=== PATIENT | male | born 1950 | race Caucasian/White ===

== ENCOUNTER 2019-01-20 04:36 | Inpatient (IN) | payer OTHER, MEDICARE ==
[~2019-01-20] VITALS: Ht 170.2 cm; Wt 81.1 kg
[2019-01-20] MEDS ORDERED: SODIUM CHLORIDE 0.9% 1,000ML IVBOLUS ONE (05:00)
[2019-01-20 05:33] LABS: BASOPHILS % (AUTO) 0 % (0-1); EOSINOPHILS # (AUTO) 0.02 x10^3/uL (0-0.4); EOSINOPHILS % (AUTO) 0 % (1-7); LYMPHOCYTES # (AUTO) 0.61 x10^3/uL (1-3.4); LYMPHOCYTES % (AUTO) 6 % (22-44); MD NO; MEAN CORPUSCULAR HEMOGLOBIN 32.3 pg (27.5-34.5); MEAN CORPUSCULAR HGB CONC 34.1 g/dL (33.2-36.2); MEAN CORPUSCULAR VOLUME 94.7 fL (81-97); MEAN PLATELET VOLUME 9.9 fL (7.4-10.4); MONOCYTES # (AUTO) 0.58 x10^3/uL (0.2-0.8); MONOCYTES % (AUTO) 6 % (2-9); NEUTROPHILS # (AUTO) 9.47 x10^3/uL (1.8-6.8); NEUTROPHILS % (AUTO) 89 % (42-75); PLATELET COUNT 160 x10^3/uL (130-400); RED BLOOD COUNT 4.37 x10^6/uL (4.38-5.82)
[2019-01-20 05:41] LABS: ALBUMIN 3.6 g/dL (3.4-5.0); ANION GAP 4 mmol/L (5-15); CALCIUM 8.6 mg/dL (8.5-10.1); CHLORIDE 108 mmol/L (98-107)
[2019-01-20] MEDS ORDERED: LAMO300T2 PO (05:56)
--- NOTE | 2019-01-20 05:56 | NUR ---
PT RESTING ON GURJUNIOR, AT BEDSIDE. PT STATES "IT HURTS TO TAKE A DEEP BREATH". PT RESP RATE 24-28. VSS. WILL CONT TO MONITOR.
[2019-01-20] MEDS ORDERED: ALBUTEROL SULFATE 2.5 MG/3 ML NPPB ONE (06:00)
[2019-01-20] MEDS ORDERED: ALBUTEROL SULFATE 2.5 MG/3 ML ONE (06:02)
--- NOTE | 2019-01-20 06:56 | NUR ---
Recieved bedside report from MARCELO Gagnon. All questions answered. Assuming care of pt. NADN. No needs expressed from pt. call light within reach. All safety measures in place.
[2019-01-20] MEDS ORDERED: CEFTRIAXONE PMX 1GM/50ML 50 ML ONE (06:59)
[2019-01-20] MEDS ORDERED: PIPERACILLIN/TAZO/PMX 3.375GM 50 ML IVPB ONE (07:00)
[2019-01-20] MEDS ORDERED: CEFTRIAXONE PMX 1GM/50ML 50 ML IVPB ONE (07:00)
[2019-01-20] MEDS ORDERED: ONDANSETRON 2MG/ML, 2ML ONE (07:15)
--- NOTE | 2019-01-20 07:22 | NUR ---
Provided pt medication per EMAR. LEONG. Pt appreciative. Pt requesting yogurt for breakfast. Ordered pt breakfast tray with yogurt. Call light within reach. No other needs requested at this time. Pt connected to NIBP, continous pulse ox, and load tallier. All safety measures in place. Spouse at bedside.
[2019-01-20] MEDS ORDERED: ONDANSETRON 2MG/ML, 2ML IVPush ONE (07:30)
[2019-01-20] MEDS ORDERED: SODIUM CHLORIDE FLUSH 10ML SYR IVF PRN (07:30)
--- NOTE | 2019-01-20 08:14 | NUR ---
Provided report to MARCELO Archer. All questions answered. Pt ready to transfer to floor from ED.
--- NOTE | 2019-01-20 08:23 | NUR ---
Pt transfered to floor from ED and left with all personal belongings.
[2019-01-20 10:43] VITALS: BP 104/65
[2019-01-20] MEDS ORDERED: GUAIFENESIN/COD200MG-20MG/10ML LIQUID PO PRN (11:30)
[2019-01-20] MEDS ORDERED: ACETAMINOPHEN 325 MG TABLET PO PRN (11:30)
[2019-01-20] MEDS ORDERED: morphine SULFATE 10 MG/ML, 1ML IVPush PRN (11:30)
[2019-01-20] MEDS ORDERED: ONDANSETRON 2MG/ML, 2ML IVPush PRN (11:30)
[2019-01-20] MEDS ORDERED: NITROGLYCERIN 0.4 MG BOTTLE (25 TABS) SL PRN (11:30)
[2019-01-20] MEDS ORDERED: hydrALAzine 20 MG/ML, 1ML IVPush PRN (11:30)
[2019-01-20] MEDS ORDERED: CYCLOBENZAPRINE 10 MG TABLET PO PRN (11:30)
[2019-01-20] MEDS ORDERED: OXYcodone IR 5MG TABLET PO PRN (11:30)
[2019-01-20 12:42] VITALS: BP 105/66
[2019-01-20] MEDS: CLINDAMYCIN PMX 600MG/50ML 50 ML IV SCH ×2 (12:47→20:45)
[2019-01-20] MEDS: ENOXAPARIN 40 MG/0.4 ML SQ SCH (12:47)
--- NOTE | 2019-01-20 13:47 | NUR ---
REC: Chopped diet with thin liquids; strict aspiration precautions; Swallowing precautions (orange sheet) posted in room. Addendum: 01/20/19 at 1348 by Roberta PATEL Amended: Links added.
[2019-01-20] MEDS: LACTOBACILLUS 1GM/ PACKET PO SCH ×2 (17:19→23:46)
[2019-01-20 19:02] VITALS: BP 104/66
[2019-01-20] MEDS: SODIUM CHLORIDE 0.9% 1,000 ML IV SCH (23:46)
[2019-01-20] MEDS: LAMOTRIGINE 100 MG TABLET PO SCH (23:48)
[2019-01-21 01:15] VITALS: BP 104/70
[2019-01-21] MEDS: CLINDAMYCIN PMX 600MG/50ML 50 ML IV SCH (04:44)
[2019-01-21 04:49] LABS: BASOPHILS # (AUTO) 0.05 x10^3/uL (0-0.1); BASOPHILS % (AUTO) 1 % (0-1); EOSINOPHILS # (AUTO) 0.06 x10^3/uL (0-0.4); EOSINOPHILS % (AUTO) 1 % (1-7); LYMPHOCYTES # (AUTO) 1.02 x10^3/uL (1-3.4); LYMPHOCYTES % (AUTO) 11 % (22-44); MD NO; MEAN CORPUSCULAR HEMOGLOBIN 32.4 pg (27.5-34.5); MEAN CORPUSCULAR HGB CONC 34.1 g/dL (33.2-36.2); MEAN PLATELET VOLUME 9.5 fL (7.4-10.4); MONOCYTES # (AUTO) 0.98 x10^3/uL (0.2-0.8); MONOCYTES % (AUTO) 11 % (2-9); NEUTROPHILS # (AUTO) 6.98 x10^3/uL (1.8-6.8); NEUTROPHILS % (AUTO) 77 % (42-75); PLATELET COUNT 144 x10^3/uL (130-400); RED BLOOD COUNT 3.93 x10^6/uL (4.38-5.82); RED CELL DISTRIBUTION WIDTH 13.5 % (9.4-14.8)
[2019-01-21 04:55] LABS: ANION GAP 6 mmol/L (5-15); CALCIUM 7.9 mg/dL (8.5-10.1); CHLORIDE 109 mmol/L (98-107); CREATININE 0.75 mg/dL (0.7-1.3)
[2019-01-21] MEDS ORDERED: CEFTRIAXONE PMX 1GM/50ML 50 ML IV SCH (07:00)
[2019-01-21 07:31] VITALS: BP 98/66
[2019-01-21] MEDS: LAMOTRIGINE 100 MG TABLET PO SCH ×2 (08:22→21:19)
[2019-01-21] MEDS: LACTOBACILLUS 1GM/ PACKET PO SCH ×3 (08:22→21:19)
[2019-01-21] MEDS ORDERED: LAMOTRIGINE PO SCH (09:00)
[2019-01-21] MEDS: AMPICILLIN/SULBACTAM 3 GM in SODIUM CHLORIDE 0.9% 100 ML IV SCH ×3 (10:34→21:20)
[2019-01-21] MEDS ORDERED: ALBUTEROL/IPRATROPIUM 2.5MG/0.5MG, 3 ML NPPB PRN (12:00)
[2019-01-21 12:43] VITALS: BP 96/60
[2019-01-21] MEDS: TAMSULOSIN 0.4 MG CAP.ER.24H PO SCH (12:47)
[2019-01-21] MEDS: GUAIFENESIN 200 MG TABLET PO SCH ×3 (12:47→21:19)
[2019-01-21] MEDS: SODIUM CHLORIDE 0.9% 1,000 ML IV SCH (12:48)
[2019-01-21] MEDS: ENOXAPARIN 40 MG/0.4 ML SQ SCH (12:48)
[2019-01-21] MEDS ORDERED: SODIUM CHLORIDE INHALATION 7%, 4 ML NPPB ONE (16:00)
[2019-01-21 20:45] VITALS: BP 107/63
[2019-01-21] MEDS: DOCUSATE 100 MG CAPSULE PO PRN (21:19)
[2019-01-22 00:40] VITALS: BP 104/64
[2019-01-22] MEDS: AMPICILLIN/SULBACTAM 3 GM in SODIUM CHLORIDE 0.9% 100 ML IV SCH ×4 (04:01→22:10)
[2019-01-22 04:45] LABS: BASOPHILS # (AUTO) 0.04 x10^3/uL (0-0.1); BASOPHILS % (AUTO) 0 % (0-1); EOSINOPHILS # (AUTO) 0.22 x10^3/uL (0-0.4); EOSINOPHILS % (AUTO) 2 % (1-7); LYMPHOCYTES # (AUTO) 1.86 x10^3/uL (1-3.4); LYMPHOCYTES % (AUTO) 18 % (22-44); MD NO; MEAN CORPUSCULAR HEMOGLOBIN 32.2 pg (27.5-34.5); MEAN CORPUSCULAR HGB CONC 33.7 g/dL (33.2-36.2); MEAN CORPUSCULAR VOLUME 95.5 fL (81-97); MEAN PLATELET VOLUME 9.5 fL (7.4-10.4); MONOCYTES # (AUTO) 0.84 x10^3/uL (0.2-0.8); MONOCYTES % (AUTO) 8 % (2-9); NEUTROPHILS # (AUTO) 7.14 x10^3/uL (1.8-6.8); NEUTROPHILS % (AUTO) 71 % (42-75); PLATELET COUNT 166 x10^3/uL (130-400); RED BLOOD COUNT 4.26 x10^6/uL (4.38-5.82); RED CELL DISTRIBUTION WIDTH 13.3 % (9.4-14.8)
[2019-01-22 04:55] LABS: ALANINE AMINOTRANSFERASE 32 U/L (12-78); ALBUMIN 2.7 g/dL (3.4-5.0); ANION GAP 8 mmol/L (5-15); CALCIUM 8.2 mg/dL (8.5-10.1); CHLORIDE 111 mmol/L (98-107); CREATININE 0.76 mg/dL (0.7-1.3)
[2019-01-22 04:57] LABS: ALKALINE PHOSPHATASE 86 U/L (45-117); BILIRUBIN,TOTAL 0.9 mg/dL (0.2-1.0); TOTAL PROTEIN 6.2 g/dL (6.4-8.2)
[2019-01-22] MEDS: GUAIFENESIN 200 MG TABLET PO SCH ×4 (06:01→21:25)
[2019-01-22 07:19] VITALS: BP 105/63
[2019-01-22] MEDS: LAMOTRIGINE 100 MG TABLET PO SCH ×2 (09:04→21:25)
[2019-01-22] MEDS: LACTOBACILLUS 1GM/ PACKET PO SCH ×3 (09:04→21:25)
[2019-01-22] MEDS: TAMSULOSIN 0.4 MG CAP.ER.24H PO SCH (09:04)
[2019-01-22] MEDS: ENOXAPARIN 40 MG/0.4 ML SQ SCH (10:52)
[2019-01-22 12:42] VITALS: BP 108/58
[2019-01-22] MEDS: DOCUSATE 100 MG CAPSULE PO PRN (16:46)
[2019-01-22 19:33] VITALS: BP 120/71
[2019-01-23 02:15] VITALS: BP 115/66
[2019-01-23] MEDS: AMPICILLIN/SULBACTAM 3 GM in SODIUM CHLORIDE 0.9% 100 ML IV SCH ×2 (05:14→10:18)
[2019-01-23 05:44] LABS: BASOPHILS # (AUTO) 0.02 x10^3/uL (0-0.1); BASOPHILS % (AUTO) 0 % (0-1); EOSINOPHILS # (AUTO) 0.35 x10^3/uL (0-0.4); EOSINOPHILS % (AUTO) 4 % (1-7); LYMPHOCYTES % (AUTO) 16 % (22-44); MD NO; MEAN CORPUSCULAR HEMOGLOBIN 32.2 pg (27.5-34.5); MEAN CORPUSCULAR HGB CONC 33.7 g/dL (33.2-36.2); MEAN CORPUSCULAR VOLUME 95.6 fL (81-97); MEAN PLATELET VOLUME 9.4 fL (7.4-10.4); MONOCYTES # (AUTO) 0.71 x10^3/uL (0.2-0.8); MONOCYTES % (AUTO) 9 % (2-9); NEUTROPHILS # (AUTO) 5.91 x10^3/uL (1.8-6.8); NEUTROPHILS % (AUTO) 71 % (42-75); PLATELET COUNT 190 x10^3/uL (130-400); RED BLOOD COUNT 3.92 x10^6/uL (4.38-5.82); RED CELL DISTRIBUTION WIDTH 12.9 % (9.4-14.8)
[2019-01-23 05:55] LABS: CHLORIDE 112 mmol/L (98-107)
[2019-01-23 06:11] LABS: ALANINE AMINOTRANSFERASE 31 U/L (12-78); ALBUMIN 2.7 g/dL (3.4-5.0); ALKALINE PHOSPHATASE 97 U/L (45-117); ANION GAP 6 mmol/L (5-15); BILIRUBIN,TOTAL 0.7 mg/dL (0.2-1.0); CREATININE 0.77 mg/dL (0.7-1.3); TOTAL PROTEIN 6.1 g/dL (6.4-8.2)
[2019-01-23] MEDS: GUAIFENESIN 200 MG TABLET PO SCH ×3 (06:43→16:37)
[2019-01-23 07:15] VITALS: BP 121/72
[2019-01-23] MEDS: TAMSULOSIN 0.4 MG CAP.ER.24H PO SCH (08:42)
[2019-01-23] MEDS: LAMOTRIGINE 100 MG TABLET PO SCH (08:42)
[2019-01-23] MEDS: LACTOBACILLUS 1GM/ PACKET PO SCH ×2 (08:43→16:37)
[2019-01-23] MEDS ORDERED: AMOX1TAB64 PO (10:13)
[2019-01-23] MEDS ORDERED: GUAI200T3 PO (10:13)
[2019-01-23] MEDS ORDERED: DOXY100T PO (10:13)
[2019-01-23] MEDS ORDERED: TAMS-11 PO (10:13)
[2019-01-23] MEDS: ENOXAPARIN 40 MG/0.4 ML SQ SCH (11:16)
[2019-01-23] MEDS: GUAIFENESIN 100 MG/5 ML, 5ML UDC PO PRN ×2 (11:16→11:20)
[2019-01-23 14:35] VITALS: BP 108/77
== END 2019-01-23 17:15 | disposition home or self-care (01) | DRG 871 ==
LOC: ED 05:35 → EDIP 07:03 → 3NW 09:54
PROVIDERS: ADMIT Hospitalist; ATTEND Hospitalist
DX: A41.9 Sepsis, unspecified organism (principal); J96.01 Acute respiratory failure with hypoxia; J69.0 Pneumonitis due to inhalation of food and vomit; D64.9 Anemia, unspecified; E86.0 Dehydration; G40.909 Epilepsy, unspecified, not intractable, without status epilepticus; G80.9 Cerebral palsy, unspecified; Z82.49 Family history of ischemic heart disease and other diseases of the circulatory system
CPT/HCPCS: 36415; 84145; 96361; 99285; J7613; 71046; 71250; 80048; 80053; 82040; 83605; 83735; 84100; 85025; 87040; 93005; 93306; 94640; 96365; G0378; J0295; J0696; J1650; J2405; J7030

== ENCOUNTER 2019-01-31 12:55 | Inpatient (IN) | payer OTHER, MEDICARE ==
[~2019-01-31] VITALS: Ht 170.2 cm; Wt 75.0 kg
[~2019-01-31 12:55] MED LIST: AMOX1TAB64 PO; DOXY100T PO; GUAI200T3 PO; LAMO300T2 PO; TAMS-11 PO
[2019-01-31 13:37] LABS: BASOPHILS # (AUTO) 0.02 x10^3/uL (0-0.1); BASOPHILS % (AUTO) 0 % (0-1); EOSINOPHILS # (AUTO) 0.04 x10^3/uL (0-0.4); EOSINOPHILS % (AUTO) 0 % (1-7); LYMPHOCYTES # (AUTO) 1.01 x10^3/uL (1-3.4); LYMPHOCYTES % (AUTO) 6 % (22-44); MD NO; MEAN CORPUSCULAR HEMOGLOBIN 31.5 pg (27.5-34.5); MEAN CORPUSCULAR HGB CONC 33.4 g/dL (33.2-36.2); MEAN CORPUSCULAR VOLUME 94.4 fL (81-97); MEAN PLATELET VOLUME 8.4 fL (7.4-10.4); MONOCYTES # (AUTO) 0.92 x10^3/uL (0.2-0.8); MONOCYTES % (AUTO) 6 % (2-9); NEUTROPHILS # (AUTO) 14.18 x10^3/uL (1.8-6.8); NEUTROPHILS % (AUTO) 88 % (42-75); PLATELET COUNT 366 x10^3/uL (130-400); RED BLOOD COUNT 5.22 x10^6/uL (4.38-5.82); RED CELL DISTRIBUTION WIDTH 13.3 % (9.4-14.8)
[2019-01-31 13:46] LABS: ALANINE AMINOTRANSFERASE 139 U/L (12-78); ALBUMIN 3.7 g/dL (3.4-5.0); ANION GAP 8 mmol/L (5-15); CALCIUM 9.3 mg/dL (8.5-10.1); CHLORIDE 107 mmol/L (98-107); CREATININE 1.32 mg/dL (0.7-1.3)
[2019-01-31 13:48] LABS: ALKALINE PHOSPHATASE 152 U/L (45-117); BILIRUBIN,TOTAL 0.9 mg/dL (0.2-1.0); TOTAL PROTEIN 8.3 g/dL (6.4-8.2)
[2019-01-31] MEDS ORDERED: ONDANSETRON 2MG/ML, 2ML IVPush ONE (14:00)
[2019-01-31] MEDS ORDERED: SODIUM CHLORIDE 0.9% 1,000ML IVBOLUS ONE ×2 (14:00→15:30)
[2019-01-31] MEDS ORDERED: ONDANSETRON 2MG/ML, 2ML ONE (14:00)
[2019-01-31] MEDS ORDERED: LAMO100T5 PO (14:08)
[2019-01-31] MEDS ORDERED: LAMO200T3 PO ×2 (14:08)
--- NOTE | 2019-01-31 14:13 | NUR ---
REPORT TO PRIMARY RN LIYAH. PT AND FAMILY UPDATED ON PLAN OF CARE. DENY NEEDS AT THIS TIME.
--- NOTE | 2019-01-31 14:19 | NUR ---
Assumed care of patient. DC'd last week after admit for PN. Here today with C/O nausea, periumbilical pain tender on palpation, and SOB. NAD. Placed on NIBP, pulse ox, and tower observer. Sinus tach. IV started, labs drawn and NS bolus hung. at bedside. Will continue to monitor.
[2019-01-31 14:26] LABS: INTERNATIONAL NORMALIZED RATIO 1.04 (0.93-1.1); PROTHROMBIN TIME 10.9 Seconds (9.6-11.5)
[2019-01-31] MEDS ORDERED: OMNIPAQUE 350 MG/ML, 100ML BOTTLE ONE (15:04)
--- NOTE | 2019-01-31 15:07 | NUR ---
Back from CT. Encouraged patient to provide UA.
--- NOTE | 2019-01-31 15:43 | NUR ---
Remains tachycardic after first liter. Second liter hung per MD order.
[2019-01-31] MEDS ORDERED: ONDANSETRON 2MG/ML, 2ML IVPush PRN (16:30)
[2019-01-31] MEDS ORDERED: POLYETHYLENE GLYCOL 17 GM PACKET PO PRN (16:30)
[2019-01-31] MEDS ORDERED: LABETALOL 5MG/ML, 20ML IVPush PRN (16:30)
[2019-01-31] MEDS ORDERED: DILTIAZEM 5 MG/ML, 5ML IVPush ONE (16:30)
[2019-01-31] MEDS ORDERED: ONDANSETRON ODT 4 MG PO PRN (16:30)
[2019-01-31] MEDS ORDERED: DILTIAZEM 5 MG/ML, 10ML ONE (16:37)
[2019-01-31 16:46] LABS: MICROSCOPIC AUTO
--- NOTE | 2019-01-31 16:48 | NUR ---
Report to MARCELO Santoro.
[2019-01-31 16:50] LABS: FREE T4 (FREE THYROXINE) 1.37 ng/dL (0.76-1.46)
[2019-01-31 16:57] LABS: CULTURE INDICATED? NO
[2019-01-31 17:44] VITALS: BP 135/90
[2019-01-31] MEDS: DILTIAZEM 125 MG in SODIUM CHLORIDE 0.9% 100 ML IV SCH (18:22)
[2019-01-31] MEDS ORDERED: HEPARIN 5,000 UNITS/ML, 1ML IV ONE ×2 (18:30→21:00)
[2019-01-31] MEDS ORDERED: HEPARIN 5,000 UNITS/ML, 1ML IV PRN ×2 (18:30→21:00)
[2019-01-31] MEDS ORDERED: HEPARIN 25,000 UNITS/500ML PMX 500 ML IV PRN ×2 (18:30→21:00)
[2019-01-31 19:27] VITALS: BP 114/79
[2019-01-31] MEDS ORDERED: LAMOTRIGINE 200 MG TABLET PO SCH (21:00)
[2019-02-01 01:25] VITALS: BP 116/78
[2019-02-01 03:17] LABS: MEAN CORPUSCULAR HEMOGLOBIN 32.4 pg (27.5-34.5); MEAN CORPUSCULAR HGB CONC 33.9 g/dL (33.2-36.2); MEAN CORPUSCULAR VOLUME 95.5 fL (81-97); MEAN PLATELET VOLUME 8.4 fL (7.4-10.4); PLATELET COUNT 329 x10^3/uL (130-400); RED CELL DISTRIBUTION WIDTH 13.5 % (9.4-14.8)
[2019-02-01 03:28] LABS: ALANINE AMINOTRANSFERASE 119 U/L (12-78); ALBUMIN 3.1 g/dL (3.4-5.0); ANION GAP 5 mmol/L (5-15); CALCIUM 8.3 mg/dL (8.5-10.1); CHLORIDE 108 mmol/L (98-107)
[2019-02-01 03:39] LABS: ALKALINE PHOSPHATASE 121 U/L (45-117); BILIRUBIN,TOTAL 0.9 mg/dL (0.2-1.0); CREATININE 1.32 mg/dL (0.7-1.3); THYROID STIMULATING HORMONE 0.729 mIU/L (0.358-3.740)
[2019-02-01 05:48] LABS: BASOPHILS # (AUTO) 0.05 x10^3/uL (0-0.1); BASOPHILS % (AUTO) 0 % (0-1); EOSINOPHILS # (AUTO) 0.04 x10^3/uL (0-0.4); EOSINOPHILS % (AUTO) 0 % (1-7); LYMPHOCYTES # (AUTO) 1.12 x10^3/uL (1-3.4); LYMPHOCYTES % (AUTO) 6 % (22-44); MD SCAN; MONOCYTES # (AUTO) 1.02 x10^3/uL (0.2-0.8); MONOCYTES % (AUTO) 5 % (2-9); NEUTROPHILS # (AUTO) 17.09 x10^3/uL (1.8-6.8); NEUTROPHILS % (AUTO) 89 % (42-75)
[2019-02-01] MEDS: DILTIAZEM 125 MG in SODIUM CHLORIDE 0.9% 100 ML IV SCH ×2 (06:35→18:04)
[2019-02-01 07:40] VITALS: BP 102/67
[2019-02-01] MEDS ORDERED: SODIUM CHLORIDE 0.9% 1,000 ML IV SCH (08:00)
[2019-02-01] MEDS: SENNA/DOCUSATE TABLET PO SCH (08:17)
[2019-02-01] MEDS: LAMOTRIGINE 200 MG TABLET PO SCH (08:17)
[2019-02-01] MEDS ORDERED: LAMOTRIGINE 200 MG TABLET PO SCH (09:00)
[2019-02-01] MEDS ORDERED: LAMOTRIGINE 100 MG TABLET PO SCH (09:00)
[2019-02-01] MEDS ORDERED: OMNIPAQUE 350 MG/ML, 100ML BOTTLE ONE (09:06)
[2019-02-01] MEDS ORDERED: HEPARIN 5,000 UNITS/ML, 1ML IV ONE (14:00)
[2019-02-01 14:30] VITALS: BP 109/77
[2019-02-01] MEDS: HEPARIN 25,000 UNITS/500ML PMX 500 ML IV PRN (14:58)
[2019-02-01] MEDS ORDERED: DIGOXIN 0.25 MG/ML, 2ML IVPush ONE (15:00)
[2019-02-01] MEDS: DIGOXIN 0.25 MG/ML, 2ML IVPush SCH ×2 (16:51→21:42)
[2019-02-01 20:10] VITALS: BP 102/65
[2019-02-01] MEDS: HEPARIN 5,000 UNITS/ML, 1ML IV PRN (22:11)
[2019-02-02 01:19] VITALS: BP 123/65
[2019-02-02] MEDS: HEPARIN 5,000 UNITS/ML, 1ML IV PRN ×3 (06:28→19:58)
[2019-02-02] MEDS: DILTIAZEM 125 MG in SODIUM CHLORIDE 0.9% 100 ML IV SCH (07:04)
[2019-02-02 07:25] VITALS: BP 108/65
[2019-02-02 09:24] LABS: MEAN CORPUSCULAR HEMOGLOBIN 31.7 pg (27.5-34.5); MEAN CORPUSCULAR VOLUME 95.9 fL (81-97); MEAN PLATELET VOLUME 9.5 fL (7.4-10.4); PLATELET COUNT 325 x10^3/uL (130-400); RED CELL DISTRIBUTION WIDTH 13.5 % (9.4-14.8)
[2019-02-02] MEDS: LAMOTRIGINE 200 MG TABLET PO SCH (09:35)
[2019-02-02] MEDS: DIGOXIN 0.25 MG TABLET PO SCH (09:35)
[2019-02-02] MEDS: SENNA/DOCUSATE TABLET PO SCH (09:36)
[2019-02-02 09:40] LABS: BASOPHILS # (AUTO) 0.01 x10^3/uL (0-0.1); BASOPHILS % (AUTO) 0 % (0-1); EOSINOPHILS # (AUTO) 0.02 x10^3/uL (0-0.4); EOSINOPHILS % (AUTO) 0 % (1-7); LYMPHOCYTES # (AUTO) 1.56 x10^3/uL (1-3.4); LYMPHOCYTES % (AUTO) 10 % (22-44); MD SCAN; MONOCYTES # (AUTO) 1.26 x10^3/uL (0.2-0.8); MONOCYTES % (AUTO) 8 % (2-9); NEUTROPHILS # (AUTO) 12.46 x10^3/uL (1.8-6.8); NEUTROPHILS % (AUTO) 81 % (42-75)
[2019-02-02 09:53] LABS: ALBUMIN 2.5 g/dL (3.4-5.0); CALCIUM 8.3 mg/dL (8.5-10.1); CREATININE 1.36 mg/dL (0.7-1.3)
[2019-02-02 10:04] LABS: ALANINE AMINOTRANSFERASE 88 U/L (12-78); ALKALINE PHOSPHATASE 99 U/L (45-117); ANION GAP 8 mmol/L (5-15); BILIRUBIN,TOTAL 0.6 mg/dL (0.2-1.0); CHLORIDE 103 mmol/L (98-107); TOTAL PROTEIN 6.6 g/dL (6.4-8.2)
[2019-02-02 13:18] VITALS: BP 120/79
[2019-02-02] MEDS: DILTIAZEM 60 MG TABLET PO SCH ×2 (16:04→20:49)
[2019-02-02] MEDS: METOPROLOL TARTRATE 25 MG TABLET PO SCH ×2 (16:04→21:52)
[2019-02-02] MEDS: SODIUM CHLORIDE 0.9% 1,000 ML IV SCH (17:16)
[2019-02-02] MEDS: HEPARIN 25,000 UNITS/500ML PMX 500 ML IV PRN (17:20)
[2019-02-02 21:58] VITALS: BP 116/67
[2019-02-03 00:13] VITALS: BP 99/60
[2019-02-03] MEDS: SODIUM CHLORIDE 0.9% 1,000 ML IV SCH ×3 (01:25→16:06)
[2019-02-03 02:19] LABS: BASOPHILS # (AUTO) 0.05 x10^3/uL (0-0.1); BASOPHILS % (AUTO) 1 % (0-1); EOSINOPHILS # (AUTO) 0.05 x10^3/uL (0-0.4); EOSINOPHILS % (AUTO) 0 % (1-7); LYMPHOCYTES # (AUTO) 1.35 x10^3/uL (1-3.4); LYMPHOCYTES % (AUTO) 12 % (22-44); MD NO; MEAN CORPUSCULAR HEMOGLOBIN 32.1 pg (27.5-34.5); MEAN CORPUSCULAR HGB CONC 33.5 g/dL (33.2-36.2); MEAN CORPUSCULAR VOLUME 95.7 fL (81-97); MEAN PLATELET VOLUME 8.5 fL (7.4-10.4); MONOCYTES # (AUTO) 0.92 x10^3/uL (0.2-0.8); MONOCYTES % (AUTO) 8 % (2-9); NEUTROPHILS # (AUTO) 9.24 x10^3/uL (1.8-6.8); NEUTROPHILS % (AUTO) 80 % (42-75); PLATELET COUNT 329 x10^3/uL (130-400); RED BLOOD COUNT 4.55 x10^6/uL (4.38-5.82); RED CELL DISTRIBUTION WIDTH 12.9 % (9.4-14.8)
[2019-02-03 02:29] LABS: ALBUMIN 2.6 g/dL (3.4-5.0); ANION GAP 6 mmol/L (5-15); CALCIUM 8.3 mg/dL (8.5-10.1); CHLORIDE 107 mmol/L (98-107)
[2019-02-03 02:33] LABS: ALANINE AMINOTRANSFERASE 67 U/L (12-78); ALKALINE PHOSPHATASE 122 U/L (45-117); BILIRUBIN,TOTAL 0.5 mg/dL (0.2-1.0); CREATININE 1.21 mg/dL (0.7-1.3); TOTAL PROTEIN 6.7 g/dL (6.4-8.2)
[2019-02-03] MEDS: HEPARIN 5,000 UNITS/ML, 1ML IV PRN (02:45)
[2019-02-03 03:49] VITALS: BP 130/70
[2019-02-03] MEDS: METOPROLOL TARTRATE 25 MG TABLET PO SCH ×3 (03:54→16:06)
[2019-02-03] MEDS: DILTIAZEM 60 MG TABLET PO SCH ×4 (06:33→21:19)
[2019-02-03 08:09] VITALS: BP 109/68
[2019-02-03] MEDS: SENNA/DOCUSATE TABLET PO SCH (09:20)
[2019-02-03] MEDS: DIGOXIN 0.25 MG TABLET PO SCH (09:20)
[2019-02-03] MEDS: LAMOTRIGINE 200 MG TABLET PO SCH (09:21)
[2019-02-03] MEDS ORDERED: METOPROLOL TARTRATE 25 MG TABLET PO SCH (11:00)
--- NOTE | 2019-02-03 12:47 | NUR ---
REC: Chopped diet with thin liquids; aspiration precautions; will need assist during meals Addendum: 02/03/19 at 1247 by Roberta PATEL Amended: Links added.
[2019-02-03 14:45] VITALS: BP 103/66
[2019-02-03] MEDS ORDERED: APIXABAN 5 MG TABLET PO SCH (17:00)
[2019-02-03] MEDS ORDERED: APIXABAN 5 MG TABLET PO ONE (17:00)
[2019-02-03 21:15] VITALS: BP 110/72
[2019-02-03 21:49] VITALS: BP 110/72
[2019-02-04] MEDS: SODIUM CHLORIDE 0.9% 1,000 ML IV SCH ×2 (01:49→08:34)
[2019-02-04 01:50] VITALS: BP 135/78
[2019-02-04] MEDS: METOPROLOL TARTRATE 25 MG TABLET PO SCH ×2 (02:01→08:35)
[2019-02-04] MEDS ORDERED: GUAIFENESIN 200 MG TABLET PO ONE (02:30)
[2019-02-04 05:38] VITALS: BP 108/59
[2019-02-04] MEDS: DILTIAZEM 60 MG TABLET PO SCH ×2 (05:42→11:29)
[2019-02-04 05:43] LABS: BASOPHILS # (AUTO) 0.03 x10^3/uL (0-0.1); BASOPHILS % (AUTO) 0 % (0-1); EOSINOPHILS # (AUTO) 0.11 x10^3/uL (0-0.4); EOSINOPHILS % (AUTO) 1 % (1-7); LYMPHOCYTES # (AUTO) 1.33 x10^3/uL (1-3.4); LYMPHOCYTES % (AUTO) 14 % (22-44); MD NO; MEAN CORPUSCULAR HEMOGLOBIN 31.6 pg (27.5-34.5); MEAN CORPUSCULAR HGB CONC 33.1 g/dL (33.2-36.2); MEAN CORPUSCULAR VOLUME 95.6 fL (81-97); MEAN PLATELET VOLUME 8.6 fL (7.4-10.4); MONOCYTES # (AUTO) 0.66 x10^3/uL (0.2-0.8); MONOCYTES % (AUTO) 7 % (2-9); NEUTROPHILS # (AUTO) 7.68 x10^3/uL (1.8-6.8); NEUTROPHILS % (AUTO) 78 % (42-75); PLATELET COUNT 350 x10^3/uL (130-400); RED BLOOD COUNT 4.17 x10^6/uL (4.38-5.82); RED CELL DISTRIBUTION WIDTH 13.4 % (9.4-14.8)
[2019-02-04 05:58] LABS: CHLORIDE 110 mmol/L (98-107)
[2019-02-04 06:12] LABS: ALANINE AMINOTRANSFERASE 79 U/L (12-78); ALBUMIN 2.6 g/dL (3.4-5.0); ALKALINE PHOSPHATASE 156 U/L (45-117); ANION GAP 7 mmol/L (5-15); BILIRUBIN,TOTAL 0.4 mg/dL (0.2-1.0); CALCIUM 8.4 mg/dL (8.5-10.1); CREATININE 1.18 mg/dL (0.7-1.3); TOTAL PROTEIN 6.3 g/dL (6.4-8.2)
[2019-02-04] MEDS ORDERED: APIXABAN 5 MG TABLET PO SCH (07:00)
[2019-02-04 07:21] VITALS: BP 109/67
[2019-02-04] MEDS ORDERED: METO25TA35 PO (07:43)
[2019-02-04] MEDS ORDERED: DILT360C26 PO (07:43)
[2019-02-04] MEDS ORDERED: APIX5TAB PO (07:43)
[2019-02-04] MEDS ORDERED: DIGO250T PO ×2 (07:43)
[2019-02-04] MEDS ORDERED: DIGO125T PO (07:47)
[2019-02-04] MEDS ORDERED: ATOR40TA78 PO (08:02)
[2019-02-04 08:32] LABS: CHOL/HDL RATIO 3.3; LDL/HDL RATIO 1.9 (0.5-3.0)
[2019-02-04] MEDS: LAMOTRIGINE 200 MG TABLET PO SCH (08:35)
[2019-02-04] MEDS: DIGOXIN 0.25 MG TABLET PO SCH (08:35)
[2019-02-04] MEDS: SENNA/DOCUSATE TABLET PO SCH (08:36)
== END 2019-02-04 15:00 | disposition home health service (06) | DRG 64 ==
LOC: ED 14:19 → EDIP 16:16 → 5SO 17:27
PROVIDERS: ADMIT Internal Medicine; ATTEND Internal Medicine
DX: I63.9 Cerebral infarction, unspecified (principal); J69.0 Pneumonitis due to inhalation of food and vomit; N17.0 Acute kidney failure with tubular necrosis; D68.69 Other thrombophilia; I48.92 Unspecified atrial flutter; N28.0 Ischemia and infarction of kidney; E86.0 Dehydration; G40.909 Epilepsy, unspecified, not intractable, without status epilepticus; G80.9 Cerebral palsy, unspecified; I48.91 Unspecified atrial fibrillation; Z79.01 Long term (current) use of anticoagulants; Z79.899 Other long term (current) drug therapy; Z82.49 Family history of ischemic heart disease and other diseases of the circulatory system; Z87.891 Personal history of nicotine dependence
CPT/HCPCS: 36415; 70450; 70551; 71045; 71275; 74177; 74181; 76700; 80053; 80061; 81001; 82962; 83605; 83615; 83690; 83735; 84100; 84145; 84439; 84443; 85025; 85520; 85610; 85730; 87040; 93005; 93308; 93321; 93325; 93880; 96361; 96374; 96375; 99291; G0378; J1644; J2405; Q9967; J1160; J7030

== ENCOUNTER 2019-02-05 14:57 | Inpatient (IN) | payer OTHER, MEDICARE ==
[~2019-02-05] VITALS: Ht 170.2 cm; Wt 69.6 kg
[~2019-02-05 14:57] MED LIST changes: +APIX5TAB PO; +ATOR40TA78 PO; +DIGO125T PO; +DIGO250T PO; +DILT360C26 PO; +LAMO100T5 PO; +LAMO200T3 PO; +METO25TA35 PO
--- NOTE | 2019-02-05 15:18 | NUR ---
PT TO ED AFTER STATES PT BECAME UNRESPONSIVE FOR 15 MINUTES TODAY. PT WAS DC YESTERDAY FOR PNA YESTERDAY AND WAS DIAGNOSED WITH AFIB AND HAD STOKE ON TUESDAY. PT NEVER OUT OF AFIB UPON DC. STATES TODAY IS FIRST DAY TAKING NEW MEDICATION. CONNECTED TO [email or web address]. AFLUTTER RATE 66, ALL OTHER VSS ON RA. EDMD PRESENT FOR EXAM. AWAITING FURTHER ORDERS.
--- NOTE | 2019-02-05 15:49 | NUR ---
EDMD PRESENT FOR EXAM.
--- NOTE | 2019-02-05 16:07 | NUR ---
LAB AT BEDSIDE. UA COLLECTED AND SENT VIA STRAIGHT CATH. VSS. NO NEEDS EXPRESSED. CALL LIGHT WITHIN REACH. AWAITING RESULTS.
--- NOTE | 2019-02-05 16:09 | NUR ---
US AT BEDSIDE.
[2019-02-05 16:18] LABS: BASOPHILS # (AUTO) 0.01 x10^3/uL (0-0.1); BASOPHILS % (AUTO) 0 % (0-1); EOSINOPHILS # (AUTO) 0.14 x10^3/uL (0-0.4); EOSINOPHILS % (AUTO) 2 % (1-7); LYMPHOCYTES # (AUTO) 1.26 x10^3/uL (1-3.4); LYMPHOCYTES % (AUTO) 15 % (22-44); MD NO; MEAN CORPUSCULAR HGB CONC 33.6 g/dL (33.2-36.2); MEAN CORPUSCULAR VOLUME 95.2 fL (81-97); MEAN PLATELET VOLUME 8.1 fL (7.4-10.4); MONOCYTES # (AUTO) 0.54 x10^3/uL (0.2-0.8); MONOCYTES % (AUTO) 6 % (2-9); NEUTROPHILS # (AUTO) 6.63 x10^3/uL (1.8-6.8); NEUTROPHILS % (AUTO) 77 % (42-75); PLATELET COUNT 368 x10^3/uL (130-400); RED BLOOD COUNT 4.24 x10^6/uL (4.38-5.82); RED CELL DISTRIBUTION WIDTH 13.3 % (9.4-14.8)
[2019-02-05 16:28] LABS: INTERNATIONAL NORMALIZED RATIO 1.01 (0.93-1.1); PROTHROMBIN TIME 10.6 Seconds (9.6-11.5)
[2019-02-05 16:30] LABS: ALBUMIN 2.9 g/dL (3.4-5.0); ANION GAP 6 mmol/L (5-15); CALCIUM 8.4 mg/dL (8.5-10.1); CHLORIDE 110 mmol/L (98-107)
[2019-02-05 16:33] LABS: ALANINE AMINOTRANSFERASE 81 U/L (12-78); ALKALINE PHOSPHATASE 171 U/L (45-117); BILIRUBIN,TOTAL 0.4 mg/dL (0.2-1.0); CREATININE 1.17 mg/dL (0.7-1.3); TOTAL PROTEIN 6.9 g/dL (6.4-8.2)
[2019-02-05 16:34] LABS: MICROSCOPIC AUTO
[2019-02-05 16:39] LABS: CULTURE INDICATED? NO
--- NOTE | 2019-02-05 17:00 | NUR ---
PT RSTING IN ROOM WITH EYES CLOSED. AT BEDSIDE. NO NEEDS EXPRESSED. VSS. CALL LIGHT WITHIN REACH. RESULTS BACK. CHART UP FOR RECHECK.
--- NOTE | 2019-02-05 17:33 | NUR ---
EDMD TO BEDSIDE TO UPDATE ON POC. AWAITING DISPO.
--- NOTE | 2019-02-05 18:22 | NUR ---
ALFONSO RN AT BEDSIDE EDUCATING FAMILY ABOUT CARDIAC RHYTHM .
--- NOTE | 2019-02-05 18:43 | NUR ---
PT RESTING IN ROOM WITH AT BEDSIDE. VSS. ROOM ASSIGNED BUT STILL DIRTY.
[2019-02-05 19:50] VITALS: BP 109/67
[2019-02-05] MEDS ORDERED: hydrALAzine 20 MG/ML, 1ML IVPush PRN (20:00)
[2019-02-05] MEDS ORDERED: ONDANSETRON ODT 4 MG PO PRN (20:00)
[2019-02-05] MEDS ORDERED: POLYETHYLENE GLYCOL 17 GM PACKET PO PRN (20:00)
[2019-02-05] MEDS ORDERED: ONDANSETRON 2MG/ML, 2ML IVPush PRN (20:00)
[2019-02-05] MEDS ORDERED: PROMETHAZINE 25 MG/ML, 1ML IM PRN (20:00)
[2019-02-05] MEDS ORDERED: ACETAMINOPHEN 325 MG TABLET PO PRN (20:00)
[2019-02-05] MEDS ORDERED: BISACODYL 10 MG SUPP PR PRN (20:00)
[2019-02-05] MEDS ORDERED: morphine SULFATE 10 MG/ML, 1ML IVPush PRN (20:00)
[2019-02-05] MEDS ORDERED: DOCUSATE 100 MG CAPSULE PO PRN (20:00)
[2019-02-05 20:47] LABS: FREE T4 (FREE THYROXINE) 1.19 ng/dL (0.76-1.46); THYROID STIMULATING HORMONE 3.41 mIU/L (0.358-3.740)
[2019-02-05 20:53] LABS: HEMOGLOBIN A1C 5.3 % (4.2-6.3)
[2019-02-05] MEDS ORDERED: LAMOTRIGINE 200 MG TABLET PO SCH (21:00)
[2019-02-05] MEDS ORDERED: APIXABAN 5 MG TABLET PO SCH (21:00)
[2019-02-05] MEDS ORDERED: ATORVASTATIN 40 MG TABLET PO SCH (21:00)
[2019-02-05] MEDS ORDERED: METOPROLOL TARTRATE 25 MG TABLET PO SCH (21:00)
[2019-02-05] MEDS: SODIUM CHLORIDE 0.9% 1,000 ML IV SCH (21:49)
[2019-02-05 21:50] VITALS: BP 109/67
[2019-02-05] MEDS ORDERED: METOPROLOL TARTRATE 25 MG TABLET HOMEMEDPO SCH (23:52)
[2019-02-06 00:29] VITALS: BP 136/63
[2019-02-06] MEDS: LAMOTRIGINE 200 MG TABLET HOMEMEDPO SCH ×4 (00:39→21:00)
[2019-02-06] MEDS: APIXABAN 5 MG TABLET HOMEMEDPO SCH ×3 (00:40→20:59)
[2019-02-06] MEDS: ATORVASTATIN 40 MG TABLET HOMEMEDPO SCH ×2 (00:40→21:00)
[2019-02-06 04:48] LABS: BASOPHILS # (AUTO) 0.01 x10^3/uL (0-0.1); BASOPHILS % (AUTO) 0 % (0-1); EOSINOPHILS # (AUTO) 0.24 x10^3/uL (0-0.4); EOSINOPHILS % (AUTO) 3 % (1-7); LYMPHOCYTES # (AUTO) 1.32 x10^3/uL (1-3.4); LYMPHOCYTES % (AUTO) 16 % (22-44); MD NO; MEAN CORPUSCULAR HEMOGLOBIN 32.4 pg (27.5-34.5); MEAN CORPUSCULAR HGB CONC 33.9 g/dL (33.2-36.2); MEAN CORPUSCULAR VOLUME 95.4 fL (81-97); MONOCYTES # (AUTO) 0.66 x10^3/uL (0.2-0.8); MONOCYTES % (AUTO) 8 % (2-9); NEUTROPHILS % (AUTO) 73 % (42-75); PLATELET COUNT 369 x10^3/uL (130-400); RED BLOOD COUNT 4.17 x10^6/uL (4.38-5.82); RED CELL DISTRIBUTION WIDTH 13.3 % (9.4-14.8)
[2019-02-06 05:00] LABS: ALANINE AMINOTRANSFERASE 78 U/L (12-78); ALBUMIN 2.7 g/dL (3.4-5.0); ANION GAP 5 mmol/L (5-15); CALCIUM 8.3 mg/dL (8.5-10.1); CHLORIDE 111 mmol/L (98-107); CHOLESTEROL, TOTAL 113 mg/dL (140-239); CREATININE 1.04 mg/dL (0.7-1.3)
[2019-02-06 05:02] LABS: ALKALINE PHOSPHATASE 155 U/L (45-117); BILIRUBIN,TOTAL 0.4 mg/dL (0.2-1.0); CHOL/HDL RATIO 2.6; HDL CHOL % 38 % (26-37); HDL CHOLESTEROL (DIRECT) 43 mg/dL (40-60); LDL CHOLESTEROL,CALCULATED 57 mg/dL (54-169); LDL/HDL RATIO 1.3 (0.5-3.0); TOTAL PROTEIN 6.5 g/dL (6.4-8.2); TRIGLYCERIDES 64 mg/dL (50-200); VLDL CHOLESTEROL 13 mg/dL (0-25)
[2019-02-06] MEDS: SODIUM CHLORIDE 0.9% 1,000 ML IV SCH (07:02)
[2019-02-06 07:15] VITALS: BP 130/77
[2019-02-06] MEDS: DILTIAZEM CD 180 MG CAP.ER.24H HOMEMEDPO SCH (08:59)
[2019-02-06] MEDS: METOPROLOL TARTRATE 25 MG TABLET HOMEMEDPO SCH ×2 (08:59→21:00)
[2019-02-06] MEDS: SODIUM CHLORIDE 0.45% 1,000 ML IV SCH ×2 (08:59→17:41)
[2019-02-06] MEDS: DIGOXIN 0.125 MG TABLET HOMEMEDPO SCH (08:59)
[2019-02-06] MEDS ORDERED: DIGOXIN 0.125 MG TABLET HOMEMEDPO SCH (09:00)
[2019-02-06] MEDS ORDERED: DILTIAZEM CD 180 MG CAP.ER.24H HOMEMEDPO SCH (09:00)
[2019-02-06] MEDS ORDERED: LAMOTRIGINE 200 MG TABLET PO SCH (09:00)
[2019-02-06] MEDS ORDERED: DILTIAZEM CD 180 MG CAP.ER.24H PO SCH (09:00)
[2019-02-06] MEDS ORDERED: DIGOXIN 0.125 MG TABLET PO SCH (09:00)
[2019-02-06] MEDS ORDERED: LAMOTRIGINE 100 MG TABLET PO SCH (12:00)
[2019-02-06 12:13] VITALS: BP 125/62
[2019-02-06 20:14] VITALS: BP 114/79
[2019-02-07 01:32] VITALS: BP 108/72
[2019-02-07] MEDS: SODIUM CHLORIDE 0.45% 1,000 ML IV SCH ×2 (01:33→08:58)
[2019-02-07 07:12] VITALS: BP 128/69
[2019-02-07 08:52] VITALS: BP 132/77
[2019-02-07] MEDS: DILTIAZEM CD 180 MG CAP.ER.24H HOMEMEDPO SCH (08:55)
[2019-02-07] MEDS: APIXABAN 5 MG TABLET HOMEMEDPO SCH ×2 (08:56→20:55)
[2019-02-07] MEDS: METOPROLOL TARTRATE 25 MG TABLET HOMEMEDPO SCH ×2 (08:56→20:56)
[2019-02-07] MEDS: DIGOXIN 0.125 MG TABLET HOMEMEDPO SCH (08:56)
[2019-02-07] MEDS: LAMOTRIGINE 200 MG TABLET HOMEMEDPO SCH ×3 (08:56→20:53)
[2019-02-07 14:29] VITALS: BP 128/64
[2019-02-07 20:03] VITALS: BP 129/68
[2019-02-07] MEDS: ATORVASTATIN 40 MG TABLET HOMEMEDPO SCH (20:57)
[2019-02-08 01:00] VITALS: BP 124/62
[2019-02-08] MEDS: DILTIAZEM CD 180 MG CAP.ER.24H HOMEMEDPO SCH (05:43)
[2019-02-08] MEDS: LAMOTRIGINE 200 MG TABLET HOMEMEDPO SCH ×3 (05:44→20:45)
[2019-02-08] MEDS: METOPROLOL TARTRATE 25 MG TABLET HOMEMEDPO SCH ×2 (05:44→17:42)
[2019-02-08 07:06] LABS: ANION GAP 6 mmol/L (5-15); CHLORIDE 112 mmol/L (98-107); CREATININE 1.23 mg/dL (0.7-1.3)
[2019-02-08 07:38] VITALS: BP 127/51
[2019-02-08] MEDS: APIXABAN 5 MG TABLET HOMEMEDPO SCH ×2 (09:07→20:45)
[2019-02-08 12:37] VITALS: BP 92/54
[2019-02-08 18:25] VITALS: BP 110/58
[2019-02-08] MEDS: ATORVASTATIN 40 MG TABLET HOMEMEDPO SCH (20:44)
[2019-02-09 01:10] VITALS: BP 106/54
[2019-02-09] MEDS: DILTIAZEM CD 180 MG CAP.ER.24H HOMEMEDPO SCH (05:04)
[2019-02-09] MEDS: METOPROLOL TARTRATE 25 MG TABLET HOMEMEDPO SCH ×2 (05:04→22:07)
[2019-02-09] MEDS: LAMOTRIGINE 200 MG TABLET HOMEMEDPO SCH ×3 (05:05→22:07)
[2019-02-09 06:36] LABS: ALANINE AMINOTRANSFERASE 95 U/L (12-78); ALBUMIN 3.2 g/dL (3.4-5.0); ANION GAP 8 mmol/L (5-15); CALCIUM 9.3 mg/dL (8.5-10.1); CHLORIDE 106 mmol/L (98-107)
[2019-02-09 06:39] LABS: ALKALINE PHOSPHATASE 193 U/L (45-117); BILIRUBIN,TOTAL 0.6 mg/dL (0.2-1.0); CREATININE 1.12 mg/dL (0.7-1.3); TOTAL PROTEIN 7.6 g/dL (6.4-8.2)
[2019-02-09 06:57] VITALS: BP 102/65
[2019-02-09] MEDS: APIXABAN 5 MG TABLET HOMEMEDPO SCH ×2 (10:00→22:07)
[2019-02-09 13:34] VITALS: BP 108/68
[2019-02-09] MEDS ORDERED: METOPROLOL TARTRATE 25 MG TABLET PO ONE (18:30)
[2019-02-09 21:37] VITALS: BP 102/66
[2019-02-09] MEDS: ATORVASTATIN 40 MG TABLET HOMEMEDPO SCH (22:07)
[2019-02-10 01:44] VITALS: BP 118/67
[2019-02-10] MEDS: DILTIAZEM CD 180 MG CAP.ER.24H HOMEMEDPO SCH (05:57)
[2019-02-10] MEDS: LAMOTRIGINE 200 MG TABLET HOMEMEDPO SCH ×3 (05:58→21:02)
[2019-02-10 06:55] VITALS: BP 109/73
[2019-02-10 07:43] LABS: BASOPHILS # (AUTO) 0.05 x10^3/uL (0-0.1); BASOPHILS % (AUTO) 1 % (0-1); EOSINOPHILS # (AUTO) 0.21 x10^3/uL (0-0.4); EOSINOPHILS % (AUTO) 2 % (1-7); LYMPHOCYTES % (AUTO) 17 % (22-44); MD NO; MEAN CORPUSCULAR HEMOGLOBIN 31.3 pg (27.5-34.5); MEAN CORPUSCULAR HGB CONC 32.8 g/dL (33.2-36.2); MEAN CORPUSCULAR VOLUME 95.3 fL (81-97); MEAN PLATELET VOLUME 8.6 fL (7.4-10.4); MONOCYTES # (AUTO) 0.64 x10^3/uL (0.2-0.8); MONOCYTES % (AUTO) 7 % (2-9); NEUTROPHILS # (AUTO) 6.79 x10^3/uL (1.8-6.8); NEUTROPHILS % (AUTO) 73 % (42-75); PLATELET COUNT 428 x10^3/uL (130-400); RED BLOOD COUNT 4.78 x10^6/uL (4.38-5.82); RED CELL DISTRIBUTION WIDTH 13.5 % (9.4-14.8)
[2019-02-10 07:56] LABS: ALANINE AMINOTRANSFERASE 106 U/L (12-78); ALBUMIN 3.4 g/dL (3.4-5.0); ANION GAP 6 mmol/L (5-15); CALCIUM 9.2 mg/dL (8.5-10.1); CHLORIDE 108 mmol/L (98-107)
[2019-02-10 07:58] LABS: ALKALINE PHOSPHATASE 190 U/L (45-117); BILIRUBIN,TOTAL 0.2 mg/dL (0.2-1.0); TOTAL PROTEIN 7.6 g/dL (6.4-8.2)
[2019-02-10] MEDS ORDERED: DIGOXIN 0.25 MG/ML, 2ML IVPush ONE (08:30)
[2019-02-10] MEDS: METOPROLOL TARTRATE 25 MG TABLET HOMEMEDPO SCH ×3 (09:34→21:02)
[2019-02-10] MEDS: APIXABAN 5 MG TABLET HOMEMEDPO SCH ×2 (09:34→21:01)
[2019-02-10 13:06] VITALS: BP 113/72
[2019-02-10] MEDS: SODIUM CHLORIDE 0.45% 1,000 ML IV SCH (17:02)
[2019-02-10 19:34] VITALS: BP 102/66
[2019-02-10] MEDS: ATORVASTATIN 40 MG TABLET HOMEMEDPO SCH (21:02)
[2019-02-11 00:46] VITALS: BP 113/65
[2019-02-11] MEDS: SODIUM CHLORIDE 0.45% 1,000 ML IV SCH ×3 (02:47→23:59)
[2019-02-11 05:03] LABS: ANION GAP 7 mmol/L (5-15); CALCIUM 8.6 mg/dL (8.5-10.1); CHLORIDE 111 mmol/L (98-107)
[2019-02-11] MEDS: LAMOTRIGINE 200 MG TABLET HOMEMEDPO SCH ×3 (05:14→20:51)
[2019-02-11] MEDS: DILTIAZEM CD 180 MG CAP.ER.24H HOMEMEDPO SCH (05:14)
[2019-02-11 05:21] LABS: CREATININE 1.14 mg/dL (0.7-1.3)
[2019-02-11 07:57] VITALS: BP 109/70
[2019-02-11] MEDS: METOPROLOL TARTRATE 25 MG TABLET HOMEMEDPO SCH (08:17)
[2019-02-11] MEDS: APIXABAN 5 MG TABLET HOMEMEDPO SCH ×2 (08:17→18:34)
[2019-02-11] MEDS ORDERED: DIGOXIN 0.125 MG TABLET PO SCH (10:00)
[2019-02-11 10:41] VITALS: BP 95/58
[2019-02-11] MEDS ORDERED: SODIUM CHLORIDE 0.9%, 250ML IVBOLUS ONE (11:00)
[2019-02-11] MEDS ORDERED: ATROPINE SYRINGE 0.1 MG/ML, 10ML IVPush ONE (11:30)
[2019-02-11 15:51] VITALS: BP 97/62
[2019-02-11] MEDS ORDERED: DOPAMINE/D5W PMX 250 ML IV PRN (17:00)
[2019-02-11] MEDS ORDERED: DOBUTAMINE/D5W PMX 250 ML IV PRN (17:30)
[2019-02-11] MEDS ORDERED: ATROPINE SYRINGE 0.1 MG/ML, 10ML IVPush PRN (18:30)
[2019-02-11] MEDS: ATORVASTATIN 40 MG TABLET HOMEMEDPO SCH (20:52)
[2019-02-12 04:09] VITALS: BP 114/63
[2019-02-12 04:31] LABS: BASOPHILS # (AUTO) 0.03 x10^3/uL (0-0.1); BASOPHILS % (AUTO) 0 % (0-1); EOSINOPHILS # (AUTO) 0.18 x10^3/uL (0-0.4); EOSINOPHILS % (AUTO) 2 % (1-7); LYMPHOCYTES # (AUTO) 1.68 x10^3/uL (1-3.4); LYMPHOCYTES % (AUTO) 21 % (22-44); MD NO; MEAN CORPUSCULAR HEMOGLOBIN 31.6 pg (27.5-34.5); MEAN CORPUSCULAR HGB CONC 33.3 g/dL (33.2-36.2); MEAN CORPUSCULAR VOLUME 95.1 fL (81-97); MEAN PLATELET VOLUME 8.4 fL (7.4-10.4); MONOCYTES # (AUTO) 0.64 x10^3/uL (0.2-0.8); MONOCYTES % (AUTO) 8 % (2-9); NEUTROPHILS # (AUTO) 5.43 x10^3/uL (1.8-6.8); NEUTROPHILS % (AUTO) 68 % (42-75); PLATELET COUNT 365 x10^3/uL (130-400); RED BLOOD COUNT 4.43 x10^6/uL (4.38-5.82); RED CELL DISTRIBUTION WIDTH 13.4 % (9.4-14.8)
[2019-02-12 04:44] LABS: ALANINE AMINOTRANSFERASE 139 U/L (12-78); ALBUMIN 2.9 g/dL (3.4-5.0); ANION GAP 5 mmol/L (5-15); CALCIUM 8.5 mg/dL (8.5-10.1); CHLORIDE 110 mmol/L (98-107); CREATININE 1.12 mg/dL (0.7-1.3)
[2019-02-12 04:46] LABS: ALKALINE PHOSPHATASE 169 U/L (45-117); BILIRUBIN,TOTAL 0.4 mg/dL (0.2-1.0); TOTAL PROTEIN 6.8 g/dL (6.4-8.2)
[2019-02-12] MEDS ORDERED: DILTIAZEM CD 180 MG CAP.ER.24H HOMEMEDPO SCH (06:00)
[2019-02-12] MEDS: LAMOTRIGINE 200 MG TABLET HOMEMEDPO SCH ×3 (06:30→20:58)
[2019-02-12] MEDS: SODIUM CHLORIDE 0.45% 1,000 ML IV SCH (07:00)
[2019-02-12] MEDS: SODIUM CHLORIDE 0.9% 1,000 ML IV SCH ×2 (08:20→16:20)
[2019-02-12] MEDS ORDERED: CEFAZOLIN PMX 1GM/50ML 50 ML IVPB ONE (08:30)
[2019-02-12] MEDS: APIXABAN 5 MG TABLET HOMEMEDPO SCH (08:56)
[2019-02-12] MEDS ORDERED: LIDOCAINE 2%, 20ML ONE (09:15)
[2019-02-12] MEDS ORDERED: CEFAZOLIN 1,000 MG ONE (09:15)
[2019-02-12] MEDS ORDERED: MIDAZOLAM 1 MG/ML, 5ML ONE (09:15)
[2019-02-12] MEDS ORDERED: FENTANYL PF 100 MCG/2ML ONE (09:15)
[2019-02-12] MEDS ORDERED: LIDOCAINE 1%, 20ML ONE (09:55)
[2019-02-12] MEDS ORDERED: FENTANYL PF 250 MCG/5ML ONE (09:56)
[2019-02-12] MEDS ORDERED: MIDAZOLAM 1 MG/ML, 2ML ONE (09:56)
[2019-02-12] MEDS ORDERED: ROCURONIUM 10MG/ML,5ML ONE (10:07)
[2019-02-12] MEDS ORDERED: DEXAMETHASONE 4 MG/ML, 1ML ONE (10:07)
[2019-02-12] MEDS ORDERED: ONDANSETRON 2MG/ML, 2ML ONE (10:07)
[2019-02-12] MEDS ORDERED: SUCCINYLCHOLINE 20 MG/ML, 10ML ONE (10:07)
[2019-02-12] MEDS ORDERED: PROPOFOL 50 ML ONE (10:26)
[2019-02-12] MEDS: APIXABAN 5 MG TABLET PO SCH ×2 (13:55→20:58)
[2019-02-12] MEDS: METOPROLOL TARTRATE 25 MG TABLET PO SCH (18:18)
[2019-02-13 04:00] VITALS: BP 97/49
[2019-02-13 05:00] LABS: BASOPHILS # (AUTO) 0.02 x10^3/uL (0-0.1); BASOPHILS % (AUTO) 0 % (0-1); EOSINOPHILS # (AUTO) 0.01 x10^3/uL (0-0.4); EOSINOPHILS % (AUTO) 0 % (1-7); LYMPHOCYTES # (AUTO) 1.02 x10^3/uL (1-3.4); LYMPHOCYTES % (AUTO) 9 % (22-44); MD NO; MEAN CORPUSCULAR HEMOGLOBIN 32.2 pg (27.5-34.5); MEAN CORPUSCULAR VOLUME 94.8 fL (81-97); MEAN PLATELET VOLUME 8.2 fL (7.4-10.4); MONOCYTES # (AUTO) 0.48 x10^3/uL (0.2-0.8); MONOCYTES % (AUTO) 4 % (2-9); NEUTROPHILS # (AUTO) 10.14 x10^3/uL (1.8-6.8); NEUTROPHILS % (AUTO) 87 % (42-75); PLATELET COUNT 309 x10^3/uL (130-400); RED BLOOD COUNT 3.93 x10^6/uL (4.38-5.82); RED CELL DISTRIBUTION WIDTH 13.1 % (9.4-14.8)
[2019-02-13 05:10] LABS: ALBUMIN 2.9 g/dL (3.4-5.0); ANION GAP 5 mmol/L (5-15); CALCIUM 8.5 mg/dL (8.5-10.1); CHLORIDE 110 mmol/L (98-107)
[2019-02-13 05:14] LABS: ALANINE AMINOTRANSFERASE 94 U/L (12-78); ALKALINE PHOSPHATASE 146 U/L (45-117); BILIRUBIN,TOTAL 0.4 mg/dL (0.2-1.0); CREATININE 1.16 mg/dL (0.7-1.3); TOTAL PROTEIN 6.7 g/dL (6.4-8.2)
[2019-02-13] MEDS: METOPROLOL TARTRATE 25 MG TABLET PO SCH ×2 (06:17→17:51)
[2019-02-13] MEDS: LAMOTRIGINE 200 MG TABLET HOMEMEDPO SCH ×2 (06:17→12:00)
[2019-02-13] MEDS: APIXABAN 5 MG TABLET PO SCH (08:06)
[2019-02-13] MEDS ORDERED: LAMO200T2 HOMEMEDPO ×3 (17:00)
== END 2019-02-13 18:40 | DRG 273 ==
LOC: ED 16:32 → EDIP 17:55 → 4WST 21:24 → 5SO 02-11 10:37 → CCU 02-11 18:11 → ICU 02-11 20:48
PROVIDERS: ADMIT Hospitalist; ATTEND Internal Medicine
PROC: 02583ZZ Destruction of Conduction Mechanism, Percutaneous Approach (ICD-10-PCS; 2019-02-12)
PROC: 02K83ZZ Map Conduction Mechanism, Percutaneous Approach (ICD-10-PCS; 2019-02-12)
PROC: 5A2204Z Restoration of Cardiac Rhythm, Single (ICD-10-PCS; 2019-02-12)
PROC: 4A0234Z Measurement of Cardiac Electrical Activity, Percutaneous Approach (ICD-10-PCS; principal; 2019-02-12 10:00)
DX: I48.91 Unspecified atrial fibrillation (principal); R53.2 Functional quadriplegia; D68.69 Other thrombophilia; I82.611 Acute embolism and thrombosis of superficial veins of right upper extremity; N28.0 Ischemia and infarction of kidney; I48.3 Typical atrial flutter; E78.5 Hyperlipidemia, unspecified; E88.09 Other disorders of plasma-protein metabolism, not elsewhere classified; W18.39XA Other fall on same level, initial encounter; W07.XXXA Fall from chair, initial encounter; G40.909 Epilepsy, unspecified, not intractable, without status epilepticus; G80.9 Cerebral palsy, unspecified; I49.5 Sick sinus syndrome; Z79.01 Long term (current) use of anticoagulants; Z79.899 Other long term (current) drug therapy; Z82.49 Family history of ischemic heart disease and other diseases of the circulatory system; Z86.718 Personal history of other venous thrombosis and embolism; Z87.01 Personal history of pneumonia (recurrent); Z87.891 Personal history of nicotine dependence; Z95.0 Presence of cardiac pacemaker; Z86.73 Personal history of transient ischemic attack (TIA), and cerebral infarction without residual deficits; Y93.89 Activity, other specified; Y92.89 Other specified places as the place of occurrence of the external cause
CPT/HCPCS: 36415; 73060; 80175; 99285; J3490; 71045; 76700; 80048; 80053; 80061; 80074; 80162; 81001; 82040; 83036; 83735; 84100; 84439; 84443; 85025; 85610; 85730; 87081; 93005; 93312; 93321; 93325; 93613; 93621; 93653; 95819; C1731; C1732; C1894; G0378; J0461; J0690; J1100; J2250; J2405; J2704; J3010; C1730; J0330; J1160; J7030; J7050

== ENCOUNTER 2021-01-21 06:48 | Emergency (ER) | payer OTHER, MEDICARE ==
[~2021-01-21] VITALS: Ht 167.6 cm; Wt 68.0 kg
[~2021-01-21 06:48] MED LIST changes: -DIGO125T PO; +DIGO125T85 PO; -DIGO250T PO; +DIGO250T3 PO; -GUAI200T3 PO; +GUAI200T37 PO; +LAMO200T6 HOMEMEDPO
--- NOTE | 2021-01-21 08:01 | NUR ---
bottle packer: pt from lobby to room 17
[2021-01-21] MEDS ORDERED: L.E.T SOLUTION TP ONE ×2 (08:30→08:58)
--- NOTE | 2021-01-21 08:56 | NUR ---
PT C/O LACERATION TO UPPER FOREHEAD FTER GLF THIS AM. PT DENIES LOC OR DIZZINESS. PT FELL DUE TO RUSHING AND TRIPPED. PT HAS PAIN AT THE LACERATION SITE, 10/26.
[2021-01-21 10:02] VITALS: BP 142/79
[2021-01-21] MEDS ORDERED: METOPROLOL TARTRATE 25 MG TAB PO ONE (10:30)
== END 2021-01-21 10:35 | disposition home or self-care (01) ==
LOC: ED 09:19
DX: S06.0X0A Concussion without loss of consciousness, initial encounter (principal); G40.909 Epilepsy, unspecified, not intractable, without status epilepticus; X58.XXXA Exposure to other specified factors, initial encounter; Y93.89 Activity, other specified; Y92.89 Other specified places as the place of occurrence of the external cause; Y99.8 Other external cause status
CPT/HCPCS: 12001; 70450; 99283; 99284